=== PATIENT | female | born 1995 | race Caucasian/White ===

== ENCOUNTER 2018-02-28 20:31 | Emergency (ER) | payer BC ==
[2018-02-28 20:41] VITALS: RESP 20
[2018-02-28] MEDS ORDERED: KETOROLAC 30 MG/ML 1 ML VIAL IVP STA (21:21)
[2018-02-28 21:47] LABS: Appearance,Urine Clear (Clear); Bacteria,Urine Rare /hpf; Bilirubin,Urine Negative (Negative); Blood,Urine Negative (Negative); Color,Urine Colorless; Glucose,Urine (UA) Negative (Negative); Ketones,Urine Negative (Negative); Leukocyte Esterase,Urine Moderate (Negative); Nitrite,Urine Negative (Negative); Protein,Urine Negative (Negative); RBC,Urine 1 /hpf (0-5); Specific Gravity,Urine 1.003 (1.001-1.035); Urobilinogen,Urine <2.0 mg/dL (<2.0); WBC,Urine 17 /hpf (0-5)
[2018-02-28 22:20] LABS: Basophils % (A) 0 %; Eosinophils # (A) 0.1 k/uL (0-0.7); Eosinophils % (A) 3 %; HCT 40.9 % (34.0-46.0); HGB 13.7 gm/dL (11.4-16.0); Lymphocytes # (A) 1.5 k/uL (1.0-4.8); Lymphocytes % (A) 27 %; MCH 30.1 pg (25.0-35.0); MCHC 33.4 g/dL (31.0-37.0); Mean Platelet Volume 6.6; Monocytes # (A) 0.3 k/uL (0-1.0); Monocytes % (A) 5 %; Neutrophils # (A) 3.6 k/uL (1.3-7.7); Neutrophils % (A) 65 %; Platelet Count 268 k/uL (150-450); RBC 4.54 m/uL (3.80-5.40); RDW 12.2 % (11.5-15.5); WBC 5.6 k/uL (3.8-10.6)
[2018-02-28 22:25] LABS: INR 1.1 (<1.2); Partial Thromboplastin Time 25.3 sec (22.0-30.0)
[2018-02-28 22:27] LABS: ALT 27 U/L (9-52); AST 23 U/L (14-36); Albumin 4.6 g/dL (3.5-5.0); Alkaline Phosphatase 47 U/L (38-126); Anion Gap 13 mmol/L; Blood Urea Nitrogen 10 mg/dL (7-17); Calcium 9.4 mg/dL (8.4-10.2); Carbon Dioxide 20 mmol/L (22-30); Chloride 108 mmol/L (98-107); Glucose 87 mg/dL (74-99); Potassium 3.8 mmol/L (3.5-5.1); Sodium 141 mmol/L (137-145); Total Bilirubin 2.1 mg/dL (0.2-1.3); Total Protein 7.8 g/dL (6.3-8.2)
--- NOTE | 2018-02-28 22:50 | US ---
EXAMINATION TYPE: US transvaginal DATE OF EXAM: 02/28/2018 COMPARISON: NONE CLINICAL HISTORY: Pain. Patient says her IUD strings are very low and she is having pelvic pain, IUD in p[lace 3 years ago, TECHNIQUE: TV. Date of LMP: irregular since IUD EXAM MEASUREMENTS: Uterus: 8.8 x 4.8 x 4.3 cm Endometrial Stripe: 0.7 cm Right Ovary: 2.5 x 1.8 x 1.7 cm Left Ovary: 2.6 x 1.9 x 1.9 cm 1. Uterus: Anteverted wnl 2. Endometrium: IUD seen within lower uterine segment 3. Right Ovary: wnl 4. Left Ovary: wnl Spectral, color and waveform doppler imaging shows good arterial and venous flow within the ovaries ; there is no evidence for ovarian torsion. 5. Bilateral Adnexa: wnl 6. Posterior cul-de-sac: wnl IMPRESSION: IUD is in the lower uterine segment and not well positioned. No endometrial thickening. N o evidence of ovarian torsion. No adnexal mass or free fluid.
--- NOTE | 2018-03-01 00:01 | ED ---
Abdominal Pain HPI - General Chief Complaint: Abdominal Pain Stated Complaint: Female Time Seen by Provider: 02/28/18 21:05 Source: patient Mode of arrival: ambulatory Limitations: no limitations - History of Present Illness Initial Comments: 22-year-old female patient presents to the emergency department today with complaints of lower pelvic and low back pain. Patient is concerned that her IUD may be coming out. Patient states that she has had the pain in the lower abdomen for the last 3 days. States that she developed low back pain today. Patient states that when she felt for her IUD strings she noticed that they were lower than usual. Patient states that she did also have vaginal bleeding starting today. States the bleeding is not heavy and she has not had to wear a pad. Patient states that her period is due any time. Patient denies any abnormal vaginal discharge or odor. Denies any fever or chills. States that she was having frequency of urination but denies any dysuria or hematuria. Patient denies any recent rash, shortness breath, chest pain, nausea, vomiting, diarrhea, constipation, numbness, tingling, dizziness, weakness, headache, visual changes, or any other complaints. - Related Data Allergies Allergy/AdvReac Type Severity Reaction Status Date / Time No Known Allergies Allergy Verified 02/28/18 20:38 Review of Systems ROS Statement: Those systems with pertinent positive or pertinent negative responses have been documented in the HPI. ROS Other: All systems not noted in ROS Statement are negative. Past Medical History Past Medical History: No Reported History History of Any Multi-Drug Resistant Organisms: None Reported Past Surgical History: No Surgical Hx Reported Past Psychological History: Anxiety, Depression Smoking Status: Current some day smoker Past Alcohol Use History: None Reported Past Drug Use History: None Reported General Exam Limitations: no limitations General appearance: alert, in no apparent distress, other (This is a well- developed, well-nourished adult female patient in no acute distress. Vital signs upon presentation are temperature 98.1F, pulse 138, respirations 20, blood pressure 126/80, pulse ox 98% on room air.) Eye exam: Present: normal appearance, PERRL, EOMI. Absent: scleral icterus, conjunctival injection, periorbital swelling ENT exam: Present: normal exam, normal oropharynx, mucous membranes moist Respiratory exam: Present: normal lung sounds bilaterally. Absent: respiratory distress, wheezes, rales, rhonchi, stridor Cardiovascular Exam: Present: regular rate, normal rhythm, normal heart sounds. Absent: systolic murmur, diastolic murmur, rubs, gallop, clicks GI/Abdominal exam: Present: soft, tenderness (Suprapubic), normal bowel sounds. Absent: distended, guarding, rebound, rigid External exam: Present: normal external exam Speculum exam: Present: vaginal bleeding (Small amount of dark red vaginal bleeding), other ( was able to visualize the IUD strings, no evidence of the IUD in the vaginal vault or cervical os.) By manual exam: Present: uterine tenderness. Absent: uterine enlargement Back exam: Present: normal inspection. Absent: CVA tenderness (R), CVA tenderness (L) Neurological exam: Present: alert, oriented X3, CN II-XII intact Psychiatric exam: Present: normal affect, normal mood Skin exam: Present: warm, dry, intact, normal color. Absent: rash Course Vital Signs 02/28/18 02/28/18 03/01/18 20:38 22:58 00:17 Temperature 98.1 F 97.8 F Pulse Rate 138 H 100 95 Respiratory 20 20 20 Rate Blood Pressure 126/80 98/64 105/74 O2 Sat by Pulse 98 98 97 Oximetry Medical Decision Making - Medical Decision Making 22-year-old female patient presents to the emergency department today with complaints of pelvic and low back pain as well as concern for IUD misplacement. Physical examination did reveal some suprapubic tenderness. Pelvic exam was performed and did reveal small amount of dark red vaginal bleeding. Was able to visualize the IUD strings. Labs reviewed and are unremarkable. HCG negative. Ultrasound of the pelvis was obtained and showed the IUD in the lower uterine segment which is not an optimal position. I did discuss findings and results with the patient. She will be discharged home to follow-up with gynecology for recheck as soon as possible. She was given referral to Dr. Koo for. Return parameters were discussed in detail. She verbalizes understanding and agree with this plan per - Lab Data Result diagrams: 02/28/18 22:04 02/28/18 22:04 Lab Results 02/28/18 02/28/18 02/28/18 Range/Units 21:11 21:11 22:04 WBC 5.6 (3.8-10.6) k/uL RBC 4.54 (3.80-5.40) m/uL Hgb 13.7 (11.4-16.0) gm/dL Hct 40.9 (34.0-46.0) % MCV 90.0 (80.0-100.0) fL MCH 30.1 (25.0-35.0) pg MCHC 33.4 (31.0-37.0) g/dL RDW 12.2 (11.5-15.5) % Plt Count 268 (150-450) k/uL Neutrophils % 65 % Lymphocytes % 27 % Monocytes % 5 % Eosinophils % 3 % Basophils % 0 % Neutrophils # 3.6 (1.3-7.7) k/uL Lymphocytes # 1.5 (1.0-4.8) k/uL Monocytes # 0.3 (0-1.0) k/uL Eosinophils # 0.1 (0-0.7) k/uL Basophils # 0.0 (0-0.2) k/uL PT (9.0-12.0) sec INR (<1.2) APTT (22.0-30.0) sec Sodium (137-145) mmol/L Potassium (3.5-5.1) mmol/L Chloride (98-107) mmol/L Carbon Dioxide (22-30) mmol/L Anion Gap mmol/L BUN (7-17) mg/dL Creatinine (0.52-1.04) mg/dL Est GFR (CKD-EPI)AfAm (>60 ml/min/1.73 sqM) Est GFR (CKD-EPI)NonAf (>60 ml/min/1.73 sqM) Glucose (74-99) mg/dL Calcium (8.4-10.2) mg/dL Total Bilirubin (0.2-1.3) mg/dL AST (14-36) U/L ALT (9-52) U/L Alkaline Phosphatase (38-126) U/L Total Protein (6.3-8.2) g/dL Albumin (3.5-5.0) g/dL Urine Color Colorless Urine Appearance Clear (Clear) Urine pH 6.0 (5.0-8.0) Ur Specific [place] 1.003 (1.001-1.035) Urine Protein Negative (Negative) Urine Glucose (UA) Negative (Negative) Urine Ketones Negative (Negative) Urine Blood Negative (Negative) Urine Nitrite Negative (Negative) Urine Bilirubin Negative (Negative) Urine Urobilinogen <2.0 (<2.0) mg/dL Ur Leukocyte Esterase Moderate H (Negative) Urine RBC 1 (0-5) /hpf Urine WBC 17 H (0-5) /hpf Urine Bacteria Rare H (None) /hpf Urine HCG, Qual Not Detected (Not Detectd) 02/28/18 02/28/18 Range/Units 22:04 22:04 WBC (3.8-10.6) k/uL RBC (3.80-5.40) m/uL Hgb (11.4-16.0) gm/dL Hct (34.0-46.0) % MCV (80.0-100.0) fL MCH (25.0-35.0) pg MCHC (31.0-37.0) g/dL RDW (11.5-15.5) % Plt Count (150-450) k/uL Neutrophils % % Lymphocytes % % Monocytes % % Eosinophils % % Basophils % % Neutrophils # (1.3-7.7) k/uL Lymphocytes # (1.0-4.8) k/uL Monocytes # (0-1.0) k/uL Eosinophils # (0-0.7) k/uL Basophils # (0-0.2) k/uL PT 11.0 (9.0-12.0) sec INR 1.1 (<1.2) APTT 25.3 (22.0-30.0) sec Sodium 141 (137-145) mmol/L Potassium 3.8 (3.5-5.1) mmol/L Chloride 108 H (98-107) mmol/L Carbon Dioxide 20 L (22-30) mmol/L Anion Gap 13 mmol/L BUN 10 (7-17) mg/dL Creatinine 0.81 (0.52-1.04) mg/dL Est GFR (CKD-EPI)AfAm >90 (>60 ml/min/1.73 sqM) Est GFR (CKD-EPI)NonAf >90 (>60 ml/min/1.73 sqM) Glucose 87 (74-99) mg/dL Calcium 9.4 (8.4-10.2) mg/dL Total Bilirubin 2.1 H (0.2-1.3) mg/dL AST 23 (14-36) U/L ALT 27 (9-52) U/L Alkaline Phosphatase 47 (38-126) U/L Total Protein 7.8 (6.3-8.2) g/dL Albumin 4.6 (3.5-5.0) g/dL Urine Color Urine Appearance (Clear) Urine pH (5.0-8.0) Ur Specific [place] (1.001-1.035) Urine Protein (Negative) Urine Glucose (UA) (Negative) Urine Ketones (Negative) Urine Blood (Negative) Urine Nitrite (Negative) Urine Bilirubin (Negative) Urine Urobilinogen (<2.0) mg/dL Ur Leukocyte Esterase (Negative) Urine RBC (0-5) /hpf Urine WBC (0-5) /hpf Urine Bacteria (None) /hpf Urine HCG, Qual (Not Detectd) - Radiology Data Radiology results: report reviewed, image reviewed Transvaginal pelvic ultrasound was obtained. Impression by Dr. Guo shows IUD in the lower uterine segment not well positioned. No endometrial thickening. No evidence of ovarian torsion. No adnexal mass or free fluid. Disposition Clinical Impression: Pelvic pain, IUD complication Disposition: HOME SELF-CARE Condition: Good Instructions: Pelvic Pain in Women (ED) Additional Instructions: Your IUD is not in optimal position, it is in the lower uterine segment. Follow up with gynecology for recheck as soon as possible. Return to the emergency department for recheck as soon as possible. Is patient prescribed a controlled substance at d/c from ED?: No Referrals: Curry Fine MD [Primary Care Provider] - 1-2 days Time of Disposition: 00:01
[2018-03-01 00:19] VITALS: BP 105/74; PULSE 95; TEMP 97.8
== END 2018-03-01 00:19 | disposition home or self-care (01) ==
LOC: EC 20:31
DX: T83.89XA Other specified complication of genitourinary prosthetic devices, implants and grafts, initial encounter (principal); N93.9 Abnormal uterine and vaginal bleeding, unspecified; F17.200 Nicotine dependence, unspecified, uncomplicated
CPT/HCPCS: 36415; 80053; 85025; 85610; 85730; 81001; 81025; 93975; 76830; 99284; 96374; J1885

== ENCOUNTER 2019-04-17 06:00 | Inpatient (IN) | payer BC ==
[2019-04-17] MEDS ORDERED: OXYTOCIN 10 UNIT/ML 1 ML VIAL IM PRN (06:24)
[2019-04-17] MEDS ORDERED: LIDOCAINE 0.5% (PF) 5 MG/ML (50 ML SDV) SQ PRN (06:24)
[2019-04-17] MEDS ORDERED: METHYLERGONOVINE 0.2 MG/ML 1 ML AMP IM PRN (06:24)
[2019-04-17] MEDS ORDERED: CARBOPROST TROMETHAMINE 250 MCG/ML 1 ML AMP IM PRN (06:24)
[2019-04-17] MEDS ORDERED: TERBUTALINE 1 MG/ML VIAL SQ PRN (06:24)
[2019-04-17] MEDS ORDERED: OXYTOCIN 30 UNITS/500 ML NS 30 UNIT in SALINE 1 500ML.BAG IV SCH (06:30)
[2019-04-17] MEDS: LACTATED RINGERS 1,000 ML IV SCH ×2 (06:44→11:14)
[2019-04-17 06:59] LABS: Basophils % (A) 0 %; Eosinophils # (A) 0.1 k/uL (0-0.7); Eosinophils % (A) 1 %; HCT 35.9 % (34.0-46.0); HGB 12.4 gm/dL (11.4-16.0); Lymphocytes # (A) 1.4 k/uL (1.0-4.8); Lymphocytes % (A) 17 %; MCH 30.5 pg (25.0-35.0); MCHC 34.5 g/dL (31.0-37.0); MCV 88.4 fL (80.0-100.0); Mean Platelet Volume 7.9; Monocytes # (A) 0.4 k/uL (0-1.0); Monocytes % (A) 5 %; Neutrophils # (A) 6.2 k/uL (1.3-7.7); Neutrophils % (A) 75 %; Platelet Count 246 k/uL (150-450); RBC 4.06 m/uL (3.80-5.40); RDW 13.1 % (11.5-15.5); WBC 8.3 k/uL (3.8-10.6)
--- NOTE | 2019-04-17 08:35 | P.HPOB ---
History of Present Illness H&P Date: 04/17/19 Chief Complaint: IUP at 39-0/7 weeks, elective induction of labor This is a pleasant 23-year-old 3 para 1011 at 39-0/7 weeks with an estimated due date of 04/24/2019 based on first trimester ultrasound. Patient has had routine care with myself since the first trimester. She is known Rh- and did receive program at 28 weeks, . She is a smoker and in addition was noted to have a abnormal Pap smear that will be followed after delivery. Patient's care is been essentially uncomplicated. On blood work she has a blood type of A-, rubella status immune, RPR nonreactive, B surface antigen negative, HIV negative, she did pass her one-hour Glucola with a result of 83, as stated above she receive program at 01/31/19, group beta strep was negative on 03/30/2019. This morning she states she is not feeling contractions, she notes good movement denies loss of fluid, or vaginal bleeding. Review of Systems Constitutional: Denies chills, Denies fatigue, Denies fever Ears, nose, mouth and throat: Denies headache Cardiovascular: Reports leg edema Respiratory: Denies dyspnea Gastrointestinal: Denies nausea, Denies vomiting Genitourinary: Reports Past Medical History Past Medical History: No Reported History History of Any Multi-Drug Resistant Organisms: None Reported Past Surgical History: No Surgical Hx Reported Past Anesthesia/Blood Transfusion Reactions: No Reported Reaction Past Psychological History: Anxiety Smoking Status: Former smoker Past Alcohol Use History: None Reported Past Drug Use History: None Reported - Past Family History Mother Family Medical History: No Reported History Medications and Allergies Allergies Allergy/AdvReac Type Severity Reaction Status Date / Time No Known Allergies Allergy Verified 04/17/19 06:23 Exam Osteopathic Statement: *. No significant issues noted on an osteopathic structural exam other than those noted in the History and Physical/Consult. Vital Signs Temp Pulse Resp BP Pulse Ox 04/17/19 06:22 96.9 F L 85 18 137/80 98 Intake and Output 04/16/19 04/17/19 04/17/19 22:59 06:59 14:59 Other: Weight 87.997 kg Targeted physical exam is performed in this date in general this a well- nourished well developed female in no acute distress, abdomen is noted to be gravid, on cervical exam she is 3/50/-2 station amniotomy is performed and clear fluid was obtained. Positive lower extremity edema. heart tones are noted to be category 1 and she is mary every 3-4 minutes. Results Result Diagrams: 04/17/19 06:35 Assessment and Plan (1) Term Current Visit: Yes Status: Acute Code(s): Z34.90 - ENCNTR FOR SUPRVSN OF NORMAL , UNSP, UNSP TRIMESTER SNOMED Code(s): 05989688 (2) Rh negative state in antepartum period Current Visit: Yes Status: Acute Code(s): O26.899 - OTH RELATED CONDITIONS, UNSPECIFIED TRIMESTER; Z67.91 - UNSPECIFIED BLOOD TYPE, RH NEGATIVE SNOMED Code(s): 774842039 Plan: Patient is admitted to labor and delivery for induction of labor. Pitocin induction of labor is begun per hospital protocol. Patient does desire epidural for analgesia, anticipate spontaneous vaginal delivery later today.
[2019-04-17] MEDS ORDERED: fentaNYL (PF) 50 MCG/ML 5 ML AMP ONE (11:07)
[2019-04-17] MEDS ORDERED: ROPIVACAINE 5MG/ML 20ML VIAL ONE (11:07)
[2019-04-17] MEDS ORDERED: SODIUM CHLORIDE 0.9% 100 ML BAG ONE (11:07)
[2019-04-17] MEDS ORDERED: LANOLIN CREAM 5 GM TUBE TOPICAL PRN (18:14)
[2019-04-17] MEDS ORDERED: diphenhydrAMINE 25 MG CAP PO PRN (18:14)
[2019-04-17] MEDS ORDERED: ZOLPIDEM 5 MG TAB PO PRN (18:14)
[2019-04-17] MEDS ORDERED: SIMETHICONE 80 MG CHEWABLE PO PRN (18:14)
[2019-04-17] MEDS ORDERED: diphenhydrAMINE 50 MG CAP PO PRN (18:14)
[2019-04-17] MEDS ORDERED: ACETAMINOPHEN TAB 325 MG TAB PO PRN (18:14)
[2019-04-17] MEDS ORDERED: diphenhydrAMINE 50 MG/ML 1 ML VIAL IVP PRN ×2 (18:14)
[2019-04-17] MEDS ORDERED: WITCH HAZEL 1 EACH MED..PAD TOPICAL PRN (18:14)
[2019-04-17] MEDS ORDERED: BENZOCAINE/MENTHOL SPRAY 1 GM/SPRAY AEROSOL TOPICAL PRN (18:14)
[2019-04-17] MEDS ORDERED: HYDROcodone/APAP 5-325MG 1 EACH TAB PO PRN (18:14)
[2019-04-17] MEDS ORDERED: HYDROCORTISONE 2.5% RECTAL CREAM 30 GM TUBE RECTAL PRN (18:14)
[2019-04-17] MEDS ORDERED: OXYTOCIN 20 UNITS/1000 ML NS 1,000 ML IV SCH (18:15)
--- NOTE | 2019-04-17 18:17 | P.PROBDLV ---
Vaginal Delivery Note - . Vaginal Delivery Note: This pleasant 23-year-old 3 para 1011 at 39 0/7 weeks presented to labor and delivery this morning for elective induction of labor. Patient was admitted and Pitocin induction of labor was begun per hospital protocol. Patient was noted to have irregular contractions and amniotomy was performed. Clear fluid was obtained at that time. Patient became uncomfortable requesting epidural which was placed on the anesthesia Department without difficulty. Patient progressed through labor eventually becoming complete began pushing and had a normal spontaneous vaginal delivery of a viable female infant at 1800, weight of 8 lbs. 5 oz. with Apgars of 8 and 9 at one and 5 minutes respectively. After two-minute delayed the umbilical cord was doubly clamped and cut the placenta was delivered spontaneously intact with three-vessel cord being noted. On inspection the patient's vaginal vault no lacerations were noted that required repair. The uterus was noted to be firm and below the umbilicus, estimated blood loss 200 mL. Patient and infant tolerated delivery well and are resting comfortably.
[2019-04-17] MEDS: IBUPROFEN 600 MG TAB PO PRN (18:27)
[2019-04-17] MEDS: SENNOSIDES-DOCUSATE SODIUM 1 EACH TAB PO SCH (19:47)
[2019-04-18] MEDS: IBUPROFEN 600 MG TAB PO PRN ×2 (02:14→12:15)
[2019-04-18 07:05] LABS: Basophils % (A) 0 %; Eosinophils # (A) 0.2 k/uL (0-0.7); Eosinophils % (A) 1 %; HCT 36.6 % (34.0-46.0); HGB 12.7 gm/dL (11.4-16.0); Lymphocytes # (A) 1.4 k/uL (1.0-4.8); Lymphocytes % (A) 12 %; MCHC 34.7 g/dL (31.0-37.0); MCV 89.3 fL (80.0-100.0); Mean Platelet Volume 8.4; Monocytes # (A) 0.5 k/uL (0-1.0); Monocytes % (A) 4 %; Neutrophils % (A) 82 %; Platelet Count 236 k/uL (150-450); RDW 13.3 % (11.5-15.5); WBC 12.2 k/uL (3.8-10.6)
[2019-04-18 08:13] VITALS: RESP 16
[2019-04-18] MEDS: SENNOSIDES-DOCUSATE SODIUM 1 EACH TAB PO SCH (08:13)
--- NOTE | 2019-04-18 10:18 | P.DS ---
Providers Date of admission: 04/17/19 06:12 Expected date of discharge: 04/18/19 Attending physician: Kiersten Franco Primary care physician: Stated None - Discharge Diagnosis(es) (1) Rh negative state in antepartum period Current Visit: Yes Status: Acute (2) Term Current Visit: Yes Status: Acute (3) Normal spontaneous vaginal delivery Current Visit: Yes Status: Acute Hospital Course: This is a 23-year-old 3 now para 2 woman who is admitted at 39 weeks gestation for elective induction of labor with a favorable cervix. Please see the admission history and physical for details. Following admission she underwent a Pitocin induction of labor with artificial rupture of membranes. She went on to the liver a liveborn female infant over an intact perineum weighing 8 lbs. 5 oz. with Apgars of 9 at 1 minute and 9 at 5 minutes. Please see the delivery summary for details. The patient's course was unremarkable. By the morning of day #1 she was ambulating and voiding without difficulty. She was breast-feeding successfully. Her lochia was minimal and her vital signs were stable. She was therefore discharged home on day #1 with routine instructions for care and follow-up. Plan - Discharge Summary Follow up Appointment(s)/Referral(s): Kiersten Franco DO [Doctor of Osteopathic Medicine] - 4 Weeks Activity/Diet/Wound Care/Special Instructions: Follow-up in the office in 6 weeks . Call with any concerning signs or symptoms including heavy vaginal bleeding, severe abdominal pain, fever greater than 101, swelling or redness of the lower extremities, foul vaginal discharge, or signs of depression. Nothing in the vagina for 6 weeks after delivery, specifically no intercourse. Discharge Disposition: HOME SELF-CARE
[2019-04-18] MEDS ORDERED: Rhogam IMMUNE GLOBULIN 1,500 UNIT/1 ML IM ONE (10:50)
[2019-04-18 17:23] VITALS: BP 117/74; PULSE 73; TEMP 97.4
== END 2019-04-18 18:10 | disposition home or self-care (01) | DRG 807 ==
LOC: 4FBP 06:12
PROVIDERS: ADMIT Obstetrics & Gynecology Obstetrics; ATTEND Obstetrics & Gynecology Obstetrics
PROC: 10E0XZZ Delivery of Products of Conception, External Approach (ICD-10-PCS; principal; 2019-04-17)
PROC: 00HU33Z Insertion of Infusion Device into Spinal Canal, Percutaneous Approach (ICD-10-PCS; 2019-04-17)
PROC: 3E0R3BZ Introduction of Anesthetic Agent into Spinal Canal, Percutaneous Approach (ICD-10-PCS; 2019-04-17)
PROC: 10907ZC Drainage of Amniotic Fluid, Therapeutic from Products of Conception, Via Natural or Artificial Opening (ICD-10-PCS; 2019-04-17)
PROC: 3E033VJ Introduction of Other Hormone into Peripheral Vein, Percutaneous Approach (ICD-10-PCS; 2019-04-17)
DX: O26.893 Other specified pregnancy related conditions, third trimester (principal); Z37.0 Single live birth; O99.344 Other mental disorders complicating childbirth; F41.9 Anxiety disorder, unspecified; Z3A.39 39 weeks gestation of pregnancy; Z67.11 Type A blood, Rh negative; O99.62 Diseases of the digestive system complicating childbirth; K21.9 Gastro-esophageal reflux disease without esophagitis; Z87.891 Personal history of nicotine dependence
CPT/HCPCS: 85025; 85461; 86850; 86870; 86880; 86900; 86901